=== PATIENT | female | born 1955 | race Caucasian/White ===

== ENCOUNTER 2017-03-19 17:55 | Observation (INO) | payer BC ==
--- NOTE | ~2017-03-19 | HP ---
History And Physical [id number] [place]. [address] NAME: MYRA HOLDEN : 55 STATUS : ADM José PAT#: [id number] AGE: 61 ADM/REG DATE : 03/19/17 MR#: [id number] REPORT SERV DATE: 03/20/17 DICTATED BY: ISRAEL GUTIERREZ DATE: 03/20/17 REPORT STATUS : Draft TRANSCRIBED BY: LISSY DATE: 03/20/17 DATE OF ADMISSION: 03/19/2017 CHIEF COMPLAINT: Atypical chest pain. HISTORY OF PRESENT ILLNESS: A very pleasant 61-year-old white female with no known history of CAD, reports several episodes of atypical chest pain. She reports that on 03/17/2017, around 1000 hours, she was picking a pillow up off the floor, she developed sudden midsternal chest pain that radiated through to her back lasting a few minutes in duration. She states that the discomfort settled in her back, and she seemed to be more aware of need to take a deeper breath. She also describes it as a stabbing sensation. She had not eaten any breakfast as yet. On 03/18/2017, she awoke with left arm numbness, around 0200 hours, she got up and went to the living room and sat up for approximately 1 hour. She describes associated shortness of breath, nausea, and some dizziness. Denies any diaphoresis or belching. She went about her routine for that day, but just felt somewhat unsettled and "unbalanced" all day, Saturday and Saturday. She reports some degree of anxiety and dizziness with rapid movement or change in position. She notified her PCP's office. They recommended that she come to the emergency room for further evaluation. At its most intense, she rates the chest pain a 10/10. At the time of interview in the [facility], she is pain free. She denies any personal history of myocardial infarction, stroke, DVT, or pulmonary embolus. The patient denies any recent fever or chills. Describes occasional palpitations. Consumes minimal caffeinated beverages. No syncopal episodes. Denies PND or orthopnea. PAST MEDICAL HISTORY: 1. Hypertension. 2. Hypothyroidism, on replacement. 3. Denies dyslipidemia or diabetes. 4. GERD. 5. Gout. 6. Obesity. 7. Positive family history for early CAD. 8. Sleep apnea compliant with CPAP. PAST SURGICAL HISTORY: 1. A partial colectomy secondary to diverticulitis. 2. Cholecystectomy. SOCIAL HISTORY: She is with two children. She is employed in a clerical position, does not have an exercise routine. Denies tobacco or illicits. Consumes one to two drinks per week. FAMILY HISTORY: Mother with CAD and bypass in her 60s. of a heart attack at 75. Sister with CAD and bypass at 45, remains alive at the age of 55. History And Physical [id number] [facility] [place]. [address] NAME: MYRA HOLDEN : 55 STATUS : ADM José PAT#: [id number] AGE: 61 ADM/REG DATE : 03/19/17 MR#: [id number] REPORT SERV DATE: 03/20/17 DICTATED BY: ISRAEL GUTIERREZ DATE: 03/20/17 REPORT STATUS : Draft TRANSCRIBED BY: LISSY DATE: 03/20/17 REVIEW OF SYSTEMS: A 14-point review of systems was performed, significant for HPI including reported stress test at [facility] several years ago, and cardiac catheterization by Dr. Chappell many years ago with no intervention. The patient also requests that her TSH be checked, given her similar unbalanced sensation. Otherwise complete review of systems was obtained and negative. ALLERGIES: ALLERGY TO PENICILLIN, RASH; CODEINE, NAUSEA AND VOMITING; AND BENAZEPRIL, SHORTNESS OF BREATH. HOME MEDICATIONS: Tylenol p.r.n., allopurinol 300 mg every other day, bisoprolol 10 mg daily, Caltrate 600 mg daily, vitamin D3 1000 units daily, Nexium 20 mg daily, Neurontin 300 mg nightly p.r.n., Synthroid 175 mcg daily, losartan 100 mg daily, and Aldactone 50 mg daily. PHYSICAL EXAMINATION: BLOOD PRESSURE: Bilateral blood pressures on arrival, right 159/74, left 157/74, this morning 125/55. PULSE: 56, RESPIRATORY RATE: 15, TEMPERATURE: 97.8, and O2 saturation 96% on room air. HEIGHT: 5 feet 4 inches. WEIGHT: 184 pounds. BMI of 32. GENERAL: Cooperative, in no apparent distress. HEENT: Pupils 2 mm, sclera nonicteric. Nares patent. Moist mucous membranes. No xanthelasma. NECK: Trachea midline, no thyromegaly. No JVD. No bruits. LYMPH: No cervical lymphadenopathy. No supraclavicular lymphadenopathy. RESPIRATORY: Unlabored respirations. Breath sounds clear bilaterally to posterior auscultation. No wheezes or rhonchi. CARDIOVASCULAR: Regular rate. No murmur, rub or gallop appreciated. EXTREMITIES: Without edema. Pulses 2+ bilaterally. ABDOMEN: Soft, nontender, nondistended, normal bowel sounds auscultated throughout. No organomegaly. SKIN: Warm, dry extremities. No pallor, or cyanosis. PSYCHIATRIC: Appropriate affect. Alert, oriented x3. LABORATORY DATA: Troponin less than 0.02 x3. Potassium 3.9, BUN 16; creatinine 1.60, baseline 1.1 to 1.8. Glucose 143, magnesium 1.9. BNP 7.2. WBC 11.3, hemoglobin 14.6, hematocrit 43.2, and platelet count 266,000. EKG; sinus rhythm. ASSESSMENT AND PLAN: 1. Atypical chest pain in a patient with multiple risk factors. The patient has been observed in the CPOU overnight to rule out myocardial infarction with serial enzymes and serial EKGs and held n.p.o. We will proceed with MPI today. The patient will be discharged home if low risk, no ischemia. If anything suggestive of ischemia, Cardiology referral will be initiated. Otherwise, the patient will be asked to follow up with her PCP in one to two weeks with all studies being sent to that office. 2. Hypertension. Monitor blood pressure. Hold beta-bc. Continue home medications. 3. Obesity. Diet and exercise choices are discussed. 4. Imbalance sensation similar to previous imbalance in her thyroid lab and medication. History And Physical [address] [place]. [address] NAME: MYRA HOLDEN : 55 STATUS : ADM José PAT#: [id number] AGE: 61 ADM/REG DATE : 03/19/17 MR#: [id number] REPORT SERV DATE: 03/20/17 DICTATED BY: ISRAEL GUTIERREZ DATE: 03/20/17 REPORT STATUS : Draft TRANSCRIBED BY: LISYS DATE: 03/20/17 We will check a TSH and free T4. EDELMIRA/MODL PEE Garza, IMELDA-FENG / [id number] CC: PEE Garza, ASSISTANT ELEMENTARY TEACHER-FENG Britt M.D.
[~2017-03-19 17:55] MED LIST: CALTRA600D PO; COZAAR100 MG PO; ESTRACE0.5 MG PO; ESTRADIOL2 MG PO; ESTRATEST PO; FLAG500TAB PO; LEVAQUIN750 MG PO; NEUR300 PO; PERCOCET1 TA2 PO; PROTONIX PO; REG5 PO; SPIRO50 PO; SYN.15 PO; SYNTHROID175 MCG PO; T PO; VITAMIN D31000 UNIT PO; Z300 PO; ZBETA10 PO
[2017-03-19 18:17] LABS: BASOPHILS 0.4 %; BASOPHILS ABSOLUTE 0.05 10/3/uL (0.0-0.16); EOSINOPHILS 2.1 %; EOSINOPHILS ABSOLUTE 0.24 10/3/uL (0.0-0.53); ER CBC TAT 0 Hrs 05 Mins; HEMATOCRIT 43.2 % (36.0-48.0); HEMOGLOBIN 14.6 g/dL (12.0-16.0); IMMATURE GRANULOCYTES 0.4 %; IMMATURE GRANULOCYTES ABSOLUTE 0.04 10/3/uL (0.0-0.11); LYMPHOCYTES 27.7 %; LYMPHOCYTES ABSOLUTE 3.13 10/3/uL (0.67-4.30); MEAN CORPUS HGB CONC 33.8 g/dL (32.0-36.0); MEAN CORPUSCULAR HEMOGLOB 30.5 pg (26.0-34.0); MEAN CORPUSCULAR VOLUME 90.4 fL (80-100); MEAN PLATELET VOLUME 10.1 fL (9.2-13.0); MONOCYTES 9.6 %; MONOCYTES ABSOLUTE 1.08 10/3/uL (0.21-1.20); NEUTROPHILS 59.8 %; NEUTROPHILS ABSOLUTE 6.76 10/3/uL (2.02-8.40); PLATELET COUNT 266 10/3/uL (150-400); RED CELL COUNT 4.78 10/6/uL (4.0-5.6); WHITE BLOOD CELLS 11.3 10/3/uL (4.5-10.5)
[2017-03-19 18:19] LABS: MANUAL DIFF NO %
[2017-03-19 18:28] LABS: INTERNATIONAL NORMAL RATI 1.1 UNITS (-); PARTIAL THROMBO TIME 27.9 SEC (22.5-37.2); PROTIME (NOT ORD) 13.6 SEC (12.0-14.5)
[2017-03-19 18:38] LABS: BUN (BLOOD UREA NITROGEN) 16 MG/DL (6-23); CALCIUM, SERUM 8.3 MG/DL (8.5-10.4); CHEST PAIN PROFILE TAT 0 Hrs 26 Mins; CHLORIDE, SERUM 105 MMOL/L (96-112); CO2 (CARBON DIOXIDE) 29 MMOL/L (24-34); GFR AFRICAN AMERICAN 40 ML/MIN (>=60); GFR NON AFRICAN AMERICAN 34 ML/MIN (>=60); GLUCOSE, SERUM 143 MG/DL (60-99); POTASSIUM, SERUM 3.9 MMOL/L (3.5-5.3); SODIUM, SERUM 135 MMOL/L (135-148); TROPONIN I <0.02 NG/ML (<0.05)
[2017-03-19] MEDS ORDERED: NEXIUM20 M1 PO (19:52)
[2017-03-20 01:10] LABS: TROPONIN I <0.02 NG/ML (<0.05)
[2017-03-20 13:35] LABS: BUN (BLOOD UREA NITROGEN) 16 MG/DL (6-23); CALCIUM, SERUM 8.2 MG/DL (8.5-10.4); CHLORIDE, SERUM 107 MMOL/L (96-112); CHOL/HDL RATIO(NOT ORDER) 3.5 (0-5); CHOLESTEROL 177 MG/DL (< 200); CO2 (CARBON DIOXIDE) 29 MMOL/L (24-34); CREATININE 1.56 MG/DL (0.55-1.02); FREE T4 1.39 NG/DL (0.76-1.46); GFR AFRICAN AMERICAN 41 ML/MIN (>=60); GFR NON AFRICAN AMERICAN 35 ML/MIN (>=60); GLUCOSE, SERUM 134 MG/DL (60-99); HDL CHOLESTEROL 51 MG/DL (> 49); LDL CHOLESTEROL 96 MG/DL (< 130); NON-HDL CHOLESTEROL 126 MG/DL (< 160); POTASSIUM, SERUM 3.9 MMOL/L (3.5-5.3); SODIUM, SERUM 140 MMOL/L (135-148); TRIGLYCERIDE 151 MG/DL (< 150)
[2017-03-20 15:16] LABS: PROCALCITONIN <0.05 ng/mL (<0.5)
[2017-03-21 04:14] LABS: CHLORIDE, SERUM 109 MMOL/L (96-112); CO2 (CARBON DIOXIDE) 28 MMOL/L (24-34); CREATININE 1.48 MG/DL (0.55-1.02); GFR AFRICAN AMERICAN 44 ML/MIN (>=60); GFR NON AFRICAN AMERICAN 38 ML/MIN (>=60); GLUCOSE, SERUM 122 MG/DL (60-99); POTASSIUM, SERUM 3.4 MMOL/L (3.5-5.3); SODIUM, SERUM 140 MMOL/L (135-148)
[2017-03-21 04:28] LABS: BUN (BLOOD UREA NITROGEN) 20 MG/DL (6-23); CALCIUM, SERUM 7.2 MG/DL (8.5-10.4)
== END 2017-03-21 11:55 | disposition home or self-care (01) ==
LOC: ER 17:55 → CDU1 19:42
PROVIDERS: Clinical Nurse Specialist; Emergency Medicine
PROC: 4A023N7 Measurement of Cardiac Sampling and Pressure, Left Heart, Percutaneous Approach (ICD-10-PCS; principal; 2017-03-19)
PROC: B2111ZZ Fluoroscopy of Multiple Coronary Arteries using Low Osmolar Contrast (ICD-10-PCS; 2017-03-19)
PROC: B2151ZZ Fluoroscopy of Left Heart using Low Osmolar Contrast (ICD-10-PCS; 2017-03-19)
DX: R07.89 Other chest pain (principal); I10 Essential (primary) hypertension; E03.9 Hypothyroidism, unspecified; K21.9 Gastro-esophageal reflux disease without esophagitis; G47.33 Obstructive sleep apnea (adult) (pediatric); I12.9 Hypertensive chronic kidney disease with stage 1 through stage 4 chronic kidney disease, or unspecified chronic kidney disease; N18.3 Chronic kidney disease, stage 3 (moderate); M10.9 Gout, unspecified; E66.9 Obesity, unspecified; Z82.49 Family history of ischemic heart disease and other diseases of the circulatory system; Z90.49 Acquired absence of other specified parts of digestive tract; Z88.0 Allergy status to penicillin; Z88.5 Allergy status to narcotic agent; Z79.899 Other long term (current) drug therapy
CPT/HCPCS: 71020; 78451; 80048; 80061; 83735; 83880; 84145; 84439; 84443; 84484; 85025; 85610; 85730; 93005; 93306; 93458; 96374; 99152; 99153; 99285; A9270-GY; A9502; C1760; C1769; C1894; G0378; J2250; J2405; J3010; Q9967